=== PATIENT | male | born 1940 | race Caucasian/White ===

== ENCOUNTER 2017-04-25 07:11 | Outpatient (CLI) | payer MEDICARE, BC ==
[2017-04-25 08:18] LABS: Bilirubin Negative (Negative); Blood, Urine Negative (Negative); Glucose, Urine (Dipstick) Negative (Negative); Ketone, Urine Negative (Negative); Nitrite Negative (Negative); Protein, Urine (Dipstick) Negative (Neg-Trace); Urobilinogen 0.2 mg/dL (0.2-1.0)
[2017-04-25 08:23] LABS: Bacteria/HPF None Seen HPF (None Seen); Hyaline Casts/LPF 0-3 HYALINE CAST LPF (0-3 Hyaline); RBC/HPF None Seen HPF (0-3); Squamous Epithelial None Seen HPF (0-3); WBC/HPF None Seen HPF (0-3)
--- NOTE | 2017-04-25 08:25 | ULT ---
ULTRASOUND RETROPERITONEUM COMPLETE: (RENAL) HISTORY: 76-year-old male with renal calculi. FINDINGS: Right Kidney: 9.5 x 5 x 5.5 cm Left Kidney: 10.5 x 6 x 6 cm Bilateral renal parenchymal thickness within normal limits. No hydronephrosis bilaterally. Small, 1.5 x 1.5 x 1 cm cyst at the left renal mid pole cortex. No large renal calculus identified. There are tiny echogenic foci at the parenchyma-sinus interfaces throughout the right kidney, which are nonspecific. They could represent blood vessels or tiny calculi. Urinary bladder volume is 115 m L at the time of the scan. IMPRESSION: 1. Small left renal cyst. 2. No hydronephrosis. ELENA Goldstein POS: [facility]
[2017-04-25 08:30] LABS: Anion Gap 12 mmol/L (10-20); BUN (Urea Nitrogen) 12 mg/dL (8.4-25.7); Calc. Creatinine Clearance 0 mL/min (70-130); Calcium 9.3 mg/dL (7.8-10.44); Carbon Dioxide 26 mmol/L (23-31); Chloride 102 mmol/L (98-107); Estimated GFR-MDRD 71
--- NOTE | 2017-04-25 08:43 | RAD ---
SINGLE VIEW ABDOMEN: Comparison: 04-11-16 FINDINGS: There is calcific density overlying the left abdomen, stable. Extensive retained fecal material at t he right abdomen is present. Two stable rounded densities overlie the right hemipelvis. Otherwise, n o significant interval change. IMPRESSION: Stable exam, with calcific density overlying left upper quadrant and rounded densities overlying the right hemipelvis. POS: [facility]
== END 2017-04-25 07:12 | disposition home or self-care (01) ==
LOC: ULT 07:11
PROVIDERS: ATTEND Urology
DX: N20.0 Calculus of kidney (principal); N40.0 Benign prostatic hyperplasia without lower urinary tract symptoms
CPT/HCPCS: 36415; 74000; 76770; 80048; 81001; 87086

== ENCOUNTER 2017-05-01 12:42 | Outpatient (CLI) | payer MEDICARE, BC ==
--- NOTE | 2017-05-01 16:08 | CT ---
CT OF ABDOMEN AND PELVIS PERFORMED WITHOUT CONTRAST ENHANCEMENT: History: Renal calculus. FINDINGS: The lung bases are clear of any infiltrates. A tiny amount of pericardial effusion is incidentally n oted. The liver, spleen, pancreas, and gallbladder regions appear unremarkable. Right and left adrenal glands are normal in size. An approximately 4 mm lower pole nonobstructing ri ght renal calculus is seen. Calcification in the region of the left renal pelvis appears to be vascu lar. Exophytic hypodensity involving the left kidney is statistically most likely a cyst. There is n o significant periaortic or mesenteric adenopathy. CT OF PELVIS PERFORMED WITHOUT CONTRAST ENHANCEMENT: No evidence of any significant adenopathy, mass, or free fluid. The prostate is mildly prominent. IMPRESSION: 1. Exophytic hypodensity involving the left kidney most likely a small cyst. 2. Punctate lower pole nonobstructing right renal calculus. POS: [facility]
== END 2017-05-01 12:43 | disposition home or self-care (01) ==
LOC: CT 12:42
PROVIDERS: ATTEND Urology
DX: N20.0 Calculus of kidney (principal); N28.89 Other specified disorders of kidney and ureter
CPT/HCPCS: 74176

== ENCOUNTER 2017-05-22 11:48 | Outpatient (CLI) | payer MEDICARE, BC ==
[2017-05-22 13:19] LABS: ALT (SGPT) 12 U/L (8-55); AST (SGOT) 15 U/L (5-34); Alkaline Phosphatase 67 U/L (40-150); Anion Gap 12 mmol/L (10-20); BUN (Urea Nitrogen) 12 mg/dL (8.4-25.7); Bilirubin, Total 0.6 mg/dL (0.2-1.2); Calc. Creatinine Clearance 0 mL/min (70-130); Calcium 9.1 mg/dL (7.8-10.44); Carbon Dioxide 28 mmol/L (23-31); Chloride 104 mmol/L (98-107); Cholesterol 136 mg/dl (< 200 Desired); Estimated GFR-MDRD 76; Globulin 3.3 g/dL (2.4-3.5); LDL Cholesterol, Calculated 72 mg/dL; Protein, Total 7.4 g/dL (5.8-8.1); Uric Acid 6.2 mg/dL (3.5-7.2)
[2017-05-22 14:24] LABS: Hemoglobin A1c 5.7 % (4.0-6.0)
--- NOTE | 2017-05-22 15:17 | RAD ---
LEFT KNEE History: Left knee pain x one month. Comparison: None. FINDINGS: There is moderate tricompartmental degenerative change. No fracture. No malalignment. No joint effus ion. Diffuse bone demineralization and vascular calcifications identified. IMPRESSION: Moderate tricompartment degenerative change. POS: [facility]
== END 2017-05-22 11:49 | disposition home or self-care (01) ==
LOC: SCSRAD 11:48
PROVIDERS: ATTEND Family Medicine
DX: M25.562 Pain in left knee (principal); E11.9 Type 2 diabetes mellitus without complications; M17.12 Unilateral primary osteoarthritis, left knee
CPT/HCPCS: 36415; 80053; 80061; 83036; 84550

== ENCOUNTER 2018-05-18 10:51 | Outpatient (CLI) | payer MEDICARE, BC ==
[2018-05-18 11:15] LABS: Bilirubin Negative (Negative); Blood, Urine Negative (Negative); Clarity CLEAR (Clear); Glucose, Urine (Dipstick) Negative (Negative); Leukocyte Negative (Negative); Nitrite Negative (Negative); Protein, Urine (Dipstick) Negative (Neg-Trace); Specific Gravity, Urine 1.006 (1.002-1.036); Urobilinogen 0.2 mg/dL (0.2-1.0)
[2018-05-18 11:35] LABS: Anion Gap 12 mmol/L (10-20); BUN (Urea Nitrogen) 11 mg/dL (8.4-25.7); Calc. Creatinine Clearance 0 mL/min (70-130); Calcium 9.5 mg/dL (7.8-10.44); Carbon Dioxide 28 mmol/L (23-31); Chloride 104 mmol/L (98-107); Estimated GFR-MDRD 75; Glucose 130 mg/dL (83-110); Potassium 4.6 mmol/L (3.5-5.1); Sodium 139 mmol/L (136-145)
--- NOTE | 2018-05-18 13:59 | RAD ---
KUB: Date: 05/18/18 INDICATION: History of renal calculi. COMPARISON: Prior study dated 04/25/17. FINDINGS: The small vascular calcifications seen along the medial aspect of the left renal shadow is stable. Ti ny punctate calcific density within the inferior pole of the right kidney measuring approximately 4.0 mm is stable. There is a moderate amount of retained stool within the colon. There are scattered vas cular calcifications. There are scattered degenerative changes. IMPRESSION: 1. Stable right nephrolithiasis. 2. Stable vascular calcifications seen involving the left upper quadrant of the abdomen. This was se en on the CT examination of 05/01/17 and likely reflect a vascular calcification within the left alyssia l hilum. POS: [facility]
== END 2018-05-18 10:52 | disposition home or self-care (01) ==
LOC: RAD 10:51
PROVIDERS: ATTEND Urology
DX: N40.0 Benign prostatic hyperplasia without lower urinary tract symptoms (principal); N20.0 Calculus of kidney
CPT/HCPCS: 36415; 74018; 80048; 81003; 87086

== ENCOUNTER 2018-12-10 13:26 | Outpatient (CLI) | payer MEDICARE, BC ==
[~2018-12-10 13:26] MED LIST: Gadobenate Dimeglumine 529 MG/1 ML (20ML VIAL) ONE
--- NOTE | 2018-12-10 15:45 | MRI ---
MR OF THE PELVIS WITH AND WITHOUT CONTRAST INDICATION: Prostatic hyperplasia and abnormal rectal exam COMPARISON: None TECHNIQUE: Multiplanar, multisequence MR images were obtained of the pelvis with and without IV contr ast. 17 cc of MultiHance was utilized for the examination. The examination was reviewed on a separate Performance Indicator 3-D workstation for multiplanar metric evaluation. FINDINGS: Prostate size: The prostate measured 5.1 x 4.0 x 4.0cm. 39.52 cc. Peripheral zone: No area of restricted diffusion is seen within the peripheral zone. There is wavy ar eas of intermediate to low T2 signal within the peripheral zone suspicious for fibrosis, likely related to prior prostatitis. Central zone: No suspicious signal abnormality or focal lesion. Neural vasculature: No evidence of neurovascular invasion Regional lymphadenopathy: None Dynamic contrast enhancement: Negative. Osseous structures: No suspicious osseous lesion is identified. There is slight heterogeneity of the bone marrow signal. Additional findings: None.. IMPRESSION: 1. PIRADS 2- Low (clinically significant cancer is unlikely to be present.)
== END 2018-12-10 13:27 | disposition home or self-care (01) ==
LOC: TBSIIMAG 13:26
PROVIDERS: ATTEND Urology
DX: N40.1 Benign prostatic hyperplasia with lower urinary tract symptoms (principal); R68.89 Other general symptoms and signs
CPT/HCPCS: 72197; 82565; A9577

== ENCOUNTER 2020-12-23 20:02 | Observation (INO) | payer MEDICARE ==
[2020-12-23 20:56] LABS: #Eosinphils 0.1 thou/uL (0.0-0.7); #Lymphocytes 1.7 thou/uL (1.20-3.40); #Monocytes 0.9 thou/uL (0.11-0.59); %Basophils 0.5 % (0.0-1.0); %Eosinophils 1.1 % (0.0-10.0); %Lymphocytes 21.7 % (21.0-51.0); %Monocytes 11.3 % (0.0-10.0); %Neutrophils 65.4 % (42.0-75.0); Hemoglobin 13.5 g/dL (14.0-18.0); Mean Corpuscular HGB CONC 35.3 g/dL (32.0-36.0); Mean Corpuscular Hemoglobin 35.1 pg (27.0-31.0); Mean Corpuscular Volume 99.6 fL (78.0-98.0); Mean Platelet Volume 8.4 fL (7.4-10.4); Platelet Count 247 thou/uL (130-400); RBC Distribution Width 12.1 % (11.5-14.5); Red Blood Cell (RBC) Count 3.85 mill/uL (4.70-6.10); White Blood Cell (WBC) Count 7.7 thou/uL (4.8-10.8)
[2020-12-23 21:18] LABS: ALT (SGPT) 16 U/L (8-55); AST (SGOT) 16 U/L (5-34); Albumin 4.1 g/dL (3.4-4.8); Alkaline Phosphatase 55 U/L (40-110); Anion Gap 16 mmol/L (10-20); BUN (Urea Nitrogen) 12 mg/dL (8.4-25.7); Bilirubin, Total 0.5 mg/dL (0.2-1.2); Calc. Creatinine Clearance 0 mL/min (70-130); Carbon Dioxide 24 mmol/L (23-31); Chloride 103 mmol/L (98-107); Globulin 2.9 g/dL (2.4-3.5); Glucose 135 mg/dL (83-110); Potassium 4.5 mmol/L (3.5-5.1); Sodium 138 mmol/L (136-145)
[2020-12-23] MEDS ORDERED: Ondansetron PF 4 MG/2 ML Vial IVP PRN (23:32)
[2020-12-23] MEDS ORDERED: Acetaminophen 325 MG TAB PO PRN (23:32)
[2020-12-23] MEDS ORDERED: Sodium Chloride 0.9% 1,000 ML IV SCH (23:45)
[2020-12-24 00:27] LABS: Troponin I Less than 0.010 ng/mL (< 0.028)
[2020-12-24] MEDS ORDERED: hydrALAZINE 20 MG/ML VIAL SLOW IVP PRN (01:14)
[2020-12-24 01:18] VITALS: BMI 19.9
[2020-12-24 02:45] LABS: #Eosinphils 0.1 thou/uL (0.0-0.7); #Lymphocytes 2.1 thou/uL (1.20-3.40); #Neutrophils 5.3 thou/uL (1.40-6.50); %Basophils 0.1 % (0.0-1.0); %Eosinophils 0.7 % (0.0-10.0); %Lymphocytes 24.6 % (21.0-51.0); %Monocytes 11.6 % (0.0-10.0); Hemoglobin 12.7 g/dL (14.0-18.0); Mean Corpuscular HGB CONC 34.6 g/dL (32.0-36.0); Mean Corpuscular Hemoglobin 34.4 pg (27.0-31.0); Mean Corpuscular Volume 99.7 fL (78.0-98.0); Mean Platelet Volume 8.3 fL (7.4-10.4); Platelet Count 233 thou/uL (130-400); RBC Distribution Width 12.1 % (11.5-14.5); Red Blood Cell (RBC) Count 3.68 mill/uL (4.70-6.10); White Blood Cell (WBC) Count 8.4 thou/uL (4.8-10.8)
[2020-12-24 03:00] LABS: Hemoglobin A1c 5.6 % (4.0-6.0)
[2020-12-24 03:07] LABS: Anion Gap 12 mmol/L (10-20); BUN (Urea Nitrogen) 10 mg/dL (8.4-25.7); Calc. Creatinine Clearance 68 mL/min (70-130); Calcium 8.5 mg/dL (7.8-10.44); Carbon Dioxide 24 mmol/L (23-31); Chloride 103 mmol/L (98-107); Glucose 108 mg/dL (83-110); Sodium 135 mmol/L (136-145)
[2020-12-24 03:10] LABS: Troponin I Less than 0.010 ng/mL (< 0.028)
[2020-12-24 10:43] VITALS: TEMP 98
[2020-12-24 10:44] VITALS: BP 132/76
[2020-12-24 11:37] LABS: SARS-CoV-2 PCR by NAA Not Detected (NotDetected)
[2020-12-24] MEDS ORDERED: metFORMIN 500 MG TAB PO SCH (17:00)
[2020-12-24] MEDS ORDERED: Atorvastatin Calcium 10 MG TAB PO SCH (21:00)
[2020-12-24] MEDS ORDERED: Isosorbide Mononitrate 20 MG TAB PO SCH (21:00)
[2020-12-24] MEDS ORDERED: Tamsulosin HCl 0.4 MG CAP PO SCH (21:00)
[2020-12-25] MEDS ORDERED: Clopidogrel Bisulfate 75 MG TAB PO SCH (09:00)
[2020-12-25] MEDS ORDERED: Amlodipine 5 MG TAB PO SCH (09:00)
[2020-12-25] MEDS ORDERED: Losartan 25 MG TAB PO SCH (09:00)
== END 2020-12-24 17:50 | disposition home or self-care (01) ==
LOC: ERS 20:02 → ERHOLD 22:22 → 2SW 12-24 14:38
PROVIDERS: ADMIT Internal Medicine; ATTEND Internal Medicine
DX: R55 Syncope and collapse (principal); R42 Dizziness and giddiness; R06.02 Shortness of breath; H53.8 Other visual disturbances; E86.0 Dehydration; I25.10 Atherosclerotic heart disease of native coronary artery without angina pectoris; I10 Essential (primary) hypertension; E78.5 Hyperlipidemia, unspecified; R73.03 Prediabetes; F17.220 Nicotine dependence, chewing tobacco, uncomplicated; M17.12 Unilateral primary osteoarthritis, left knee; W18.30XA Fall on same level, unspecified, initial encounter; Z79.02 Long term (current) use of antithrombotics/antiplatelets; Z79.84 Long term (current) use of oral hypoglycemic drugs; Z79.899 Other long term (current) drug therapy; Z95.5 Presence of coronary angioplasty implant and graft; Z20.822 Contact with and (suspected) exposure to COVID-19
CPT/HCPCS: 71045; 80048; 80053; 83036; 84484 ×3; 85025 ×2; 93005; 99285; G0378; U0003; U0005; 36415

== ENCOUNTER 2021-05-19 19:09 | Inpatient (IN) | payer OTHER, MEDICARE ==
[~2021-05-19 19:09] MED LIST changes: -Gadobenate Dimeglumine 529 MG/1 ML (20ML VIAL) ONE; +Iopamidol-370 76% 500 ML 1 ML ONE
[2021-05-19 19:26] LABS: #Eosinphils 0.1 thou/uL (0.0-0.7); #Monocytes 0.9 thou/uL (0.11-0.59); #Neutrophils 3.3 thou/uL (1.40-6.50); %Basophils 0.4 % (0.0-1.0); %Eosinophils 1.5 % (0.0-10.0); %Monocytes 12.5 % (0.0-10.0); %Neutrophils 44.6 % (42.0-75.0); Hemoglobin 12.2 g/dL (14.0-18.0); Mean Corpuscular HGB CONC 34.9 g/dL (32.0-36.0); Mean Corpuscular Hemoglobin 35.7 pg (27.0-31.0); Mean Platelet Volume 7.6 fL (7.4-10.4); Platelet Count 256 thou/uL (130-400); RBC Distribution Width 12.1 % (11.5-14.5); Red Blood Cell (RBC) Count 3.42 mill/uL (4.70-6.10); White Blood Cell (WBC) Count 7.3 thou/uL (4.8-10.8)
[2021-05-19 19:37] LABS: PTT 24.3 sec (22.9-36.1); Prothrombin Time 13.5 sec (12.0-14.7)
[2021-05-19 19:48] LABS: ALT (SGPT) 12 U/L (8-55); AST (SGOT) 14 U/L (5-34); Albumin 3.4 g/dL (3.4-4.8); Alkaline Phosphatase 53 U/L (40-110); Anion Gap 14 mmol/L (10-20); BUN (Urea Nitrogen) 13 mg/dL (8.4-25.7); Bilirubin, Total 0.3 mg/dL (0.2-1.2); Calc. Creatinine Clearance 0 mL/min (70-130); Calcium 8.3 mg/dL (7.8-10.44); Carbon Dioxide 21 mmol/L (23-31); Chloride 105 mmol/L (98-107); Globulin 2.5 g/dL (2.4-3.5); Glucose 146 mg/dL (83-110); Potassium 3.8 mmol/L (3.5-5.1); Protein, Total 5.9 g/dL (5.8-8.1); Sodium 136 mmol/L (136-145)
[2021-05-19] MEDS ORDERED: Boostrix 0.5 ML (Tdap) VIAL ONE (20:00)
[2021-05-19] MEDS ORDERED: CEFAZOLIN 1 GM VIAL ONE (20:00)
[2021-05-19] MEDS ORDERED: levETIRAcetam 2,000 MG in Sodium Chloride 0.9% 100 ML IVPB SCH (20:30)
[2021-05-19] MEDS ORDERED: hydrALAZINE 20 MG/ML VIAL SLOW IVP PRN (20:33)
[2021-05-19] MEDS ORDERED: Ondansetron PF 4 MG/2 ML Vial IVP PRN (20:33)
[2021-05-19] MEDS ORDERED: HumaLOG 300 UNITS/3 ML VIAL SC PRN ×2 (20:33)
[2021-05-19] MEDS ORDERED: Dextrose 5% in Water 1,000 ML IV PRN (20:33)
[2021-05-19] MEDS ORDERED: Lorazepam 2 MG/ML VIAL SLOW IVP PRN (20:33)
[2021-05-19] MEDS ORDERED: Ondansetron ODT 4 MG TAB PO PRN (20:33)
[2021-05-19] MEDS ORDERED: Dextrose 50% Abboject 50 ML SYRINGE SLOW IVP PRN (20:33)
[2021-05-19] MEDS ORDERED: traMADol HCl 50 MG TAB PO PRN ×2 (20:42)
[2021-05-19] MEDS ORDERED: Sodium Chloride 0.9% 1,000 ML IV SCH (20:45)
[2021-05-19 21:11] LABS: SARS-CoV-2 NAA Rapid Test Not Detected (NotDetected)
[2021-05-19] MEDS: Acetaminophen 325 MG TAB PO SCH (22:51)
[2021-05-19] MEDS: Famotidine 20 MG TAB PO SCH (22:52)
[2021-05-19 23:42] VITALS: BMI 21.3
[2021-05-20 03:59] LABS: #Eosinphils 0.1 thou/uL (0.0-0.7); #Lymphocytes 1.7 thou/uL (1.20-3.40); #Monocytes 1.3 thou/uL (0.11-0.59); #Neutrophils 5.4 thou/uL (1.40-6.50); %Basophils 0.3 % (0.0-1.0); %Eosinophils 1.2 % (0.0-10.0); %Lymphocytes 19.8 % (21.0-51.0); %Monocytes 14.7 % (0.0-10.0); %Neutrophils 63.9 % (42.0-75.0); Hemoglobin 12.8 g/dL (14.0-18.0); Mean Corpuscular HGB CONC 33.9 g/dL (32.0-36.0); Mean Corpuscular Hemoglobin 34.7 pg (27.0-31.0); Platelet Count 258 thou/uL (130-400); RBC Distribution Width 12.1 % (11.5-14.5); White Blood Cell (WBC) Count 8.5 thou/uL (4.8-10.8)
[2021-05-20 04:17] LABS: Phosphorus 3.1 mg/dL (2.3-4.7)
[2021-05-20 04:19] LABS: Anion Gap 12 mmol/L (10-20); BUN (Urea Nitrogen) 10 mg/dL (8.4-25.7); Calc. Creatinine Clearance 70 mL/min (70-130); Calcium 8.7 mg/dL (7.8-10.44); Carbon Dioxide 22 mmol/L (23-31); Chloride 105 mmol/L (98-107); Glucose 114 mg/dL (83-110); Magnesium 1.8 mg/dL (1.6-2.6); Potassium 3.9 mmol/L (3.5-5.1); Sodium 135 mmol/L (136-145)
[2021-05-20] MEDS: Acetaminophen 325 MG TAB PO SCH ×3 (05:54→17:19)
[2021-05-20] MEDS: Famotidine 20 MG TAB PO SCH ×2 (08:14→21:21)
[2021-05-20] MEDS ORDERED: Magnesium 2 GM/50 ML 2 GM in Premix Bag 1 BAG IVPB SCH (08:30)
[2021-05-20] MEDS: levETIRAcetam in NS 500 MG in Premix Bag 1 BAG IVPB SCH ×2 (09:27→21:30)
[2021-05-20] MEDS: Aspirin 81 mg Enteric Coated Tablet PO SCH (09:27)
[2021-05-20] MEDS: Clopidogrel Bisulfate 75 MG TAB PO SCH (15:02)
[2021-05-20] MEDS ORDERED: Non-Formulary Item 1 EACH (Isosorbide Mononitrate [Isosorbide Mononitrate] 10 MG Tablet) PO SCH (21:00)
[2021-05-21] MEDS: Acetaminophen 325 MG TAB PO SCH ×4 (02:23→18:20)
[2021-05-21] MEDS: Aspirin 81 mg Enteric Coated Tablet PO SCH (08:55)
[2021-05-21] MEDS: Allopurinol 100 MG TAB PO SCH (08:55)
[2021-05-21] MEDS: levETIRAcetam in NS 500 MG in Premix Bag 1 BAG IVPB SCH (08:55)
[2021-05-21] MEDS: Rosuvastatin 10 MG TAB PO SCH (08:55)
[2021-05-21] MEDS: Amlodipine 5 MG TAB PO SCH (08:56)
[2021-05-21] MEDS: Famotidine 20 MG TAB PO SCH (08:56)
[2021-05-21] MEDS: levETIRAcetam 500 MG TAB PO SCH (20:42)
[2021-05-22] MEDS: Acetaminophen 325 MG TAB PO SCH ×4 (00:57→17:54)
[2021-05-22] MEDS: Rosuvastatin 10 MG TAB PO SCH (09:24)
[2021-05-22] MEDS: levETIRAcetam 500 MG TAB PO SCH ×2 (09:24→22:05)
[2021-05-22] MEDS: Allopurinol 100 MG TAB PO SCH (09:25)
[2021-05-22] MEDS: Aspirin 81 mg Enteric Coated Tablet PO SCH (09:25)
[2021-05-22] MEDS: Losartan 25 MG TAB PO SCH (09:25)
[2021-05-22] MEDS: Amlodipine 5 MG TAB PO SCH (09:25)
[2021-05-22] MEDS: Clopidogrel Bisulfate 75 MG TAB PO SCH (13:24)
[2021-05-23] MEDS: Acetaminophen 325 MG TAB PO SCH ×3 (01:54→11:33)
[2021-05-23 07:44] VITALS: TEMP 97.5
[2021-05-23] MEDS: Rosuvastatin 10 MG TAB PO SCH (09:33)
[2021-05-23] MEDS: levETIRAcetam 500 MG TAB PO SCH (09:33)
[2021-05-23] MEDS: Losartan 25 MG TAB PO SCH (09:34)
[2021-05-23] MEDS: Aspirin 81 mg Enteric Coated Tablet PO SCH (09:34)
[2021-05-23] MEDS: Amlodipine 5 MG TAB PO SCH (09:34)
[2021-05-23] MEDS: Allopurinol 100 MG TAB PO SCH (09:34)
[2021-05-23 15:39] VITALS: BP 130/75
== END 2021-05-23 16:20 | disposition home health service (06) | DRG 552 ==
LOC: ERS 19:09 → IMCU/EMU 20:48 → 2NO 05-20 16:08
PROVIDERS: ADMIT Surgery; ATTEND Surgery
DX: S12.001A Unspecified nondisplaced fracture of first cervical vertebra, initial encounter for closed fracture (principal); S06.0X9A Concussion with loss of consciousness of unspecified duration, initial encounter; G40.409 Other generalized epilepsy and epileptic syndromes, not intractable, without status epilepticus; S12.201A Unspecified nondisplaced fracture of third cervical vertebra, initial encounter for closed fracture; Z20.822 Contact with and (suspected) exposure to COVID-19; Z23 Encounter for immunization; E11.9 Type 2 diabetes mellitus without complications; M19.90 Unspecified osteoarthritis, unspecified site; I25.10 Atherosclerotic heart disease of native coronary artery without angina pectoris; I10 Essential (primary) hypertension; E78.5 Hyperlipidemia, unspecified; S40.812A Abrasion of left upper arm, initial encounter; S80.812A Abrasion, left lower leg, initial encounter; S00.81XA Abrasion of other part of head, initial encounter; S50.11XA Contusion of right forearm, initial encounter; I08.3 Combined rheumatic disorders of mitral, aortic and tricuspid valves; F17.220 Nicotine dependence, chewing tobacco, uncomplicated; R40.2412 Glasgow coma scale score 13-15, at arrival to emergency department; E87.6 Hypokalemia; E83.42 Hypomagnesemia; V47.5XXA Car driver injured in collision with fixed or stationary object in traffic accident, initial encounter; Y92.410 Unspecified street and highway as the place of occurrence of the external cause; Z79.899 Other long term (current) drug therapy; Z79.01 Long term (current) use of anticoagulants; Z79.84 Long term (current) use of oral hypoglycemic drugs; Z95.5 Presence of coronary angioplasty implant and graft
CPT/HCPCS: 36415; 36416; 70450; 71045; 71260; 72125; 72170; 74177; 80048; 80053; 83605; 83735; 84100; 84146; 85025; 85610; 85730; 86850; 86900; 86901; 90471; 90715; 93005; 93306; 93880; 95712; 95819; 95957; 96365; 96367; G0390; J0690; J1953; J3475; J3490; J7050; Q9967; U0002